=== PATIENT | male | born 1995 | race African-American/Black ===

== ENCOUNTER 2020-11-14 15:15 | Emergency (ER) | payer OTHER, SELFPAY ==
[2020-11-14 15:30] VITALS: BP 118/98; PULSE 87; RESP 16; TEMP 36.8; O2SAT 100
--- NOTE | 2020-11-14 15:36 | ED.SKABFB ---
HPI - Skin/Abscess/Foreign Bdy General Chief complaint: Skin/Abscess/Foreign Body Stated complaint: Lump on left side Time Seen by Provider: 11/14/20 15:33 Source: patient and RN notes reviewed Mode of arrival: ambulatory Limitations: no limitations History of Present Illness HPI narrative: 25-year-old male presents with concern for a lump that he noticed on his left chest wall yesterday. He reports he found it incidentally when rubbing on his chest, denies any pain in the area. Denies swelling, redness, warmth, tenderness. Denies any injury. Denies any drainage. complaint: abscess/boil Related Data Home Medications Medication Instructions Recorded Confirmed No Home Medications 11/14/20 11/14/20 Allergies Allergy/AdvReac Type Severity Reaction Status Date / Time No Known Allergies Allergy Verified 11/14/20 15:30 Review of Systems Review of Systems: Narrative: CONSTITUTIONAL: Denies malaise, chills, sweats, or fever. CARDIOVASCULAR: Denies chest pain, palpitations, or edema. RESPIRATORY: Denies cough or dyspnea. GASTROINTESTINAL: Denies abdominal pain, nausea, vomiting SKIN: Denies rash or itching. MUSCULOSKELETAL: Denies muscle skeletal pain or myalgia. Reports a lump on his left chest wall All systems reviewed & are unremarkable except as noted in HPI and below PMFSH Comments At time of signature, agree with nursing past medical, surgical, social and family history. There is no relevant family history pertinent to the presenting complaint Exam Narrative: Exam Narrative: GENERAL: Well-appearing, well-nourished, and in no acute distress. HEAD: Normocephalic, atraumatic. EYES: PERRLA, conjunctivae clear ENT: Mucous membranes moist. NECK: Supple. No lymphadenopathy. CHEST: No respiratory distress. Clear to auscultation. No bony deformities, no asymmetry. Speaks in full sentences. HEART: Regular rate and rhythm. No murmur heard. ABDOMEN: Soft, nontender, nondistended, normal active bowel sounds, no palpable masses. SKIN: Warm, dry, no rash. Palpable, mobile mass noted beneath the skin and above the ribs of the left chest wall approximately 3 cm x 1 cm, nontender without surrounding erythema, edema, induration. NEURO: Alert and oriented x3. PSYCH: Normal mood and affect Course Course Emergency Course: Patient is aware of diagnosis, understands and agrees to treatment plan. Anticipatory guidance given. Patient agrees to follow-up as directed and is aware of reasons to seek care at the emergency department. Portions of this record may have been created with voice recognition software Vital Signs Vital signs: Vital Signs Temperature 98.2 F 11/14/20 15:30 Pulse Rate 87 11/14/20 15:30 Respiratory Rate 16 11/14/20 15:30 Blood Pressure 118/98 H 11/14/20 15:30 Pulse Oximetry 100 11/14/20 15:30 Temperature 98.2 F 11/14/20 15:30 Pulse Rate 87 11/14/20 15:30 Respiratory Rate 16 11/14/20 15:30 Blood Pressure 118/98 H 11/14/20 15:30 Pulse Oximetry 100 11/14/20 15:30 Reviewed. MDM - Skin/Abscess/Foreign Bdy MDM Narrative Medical decision making narrative: Exam findings show no acute concerns or changes; patient is non-toxic appearing and is in no distress. Patient is appropriate for outpatient treatment and follow-up. Critical Care Time Critical Care Time Critical Care Time: No Discharge Plan Discharge Clinical Impression: Chest wall mass Patient Disposition: Home, Self-Care Condition: Stable Instructions: Cyst (ED) Additional Instructions: Keep your appointment with your primary care doctor next week for further evaluation. If you notice any redness, swelling, tenderness to the area you should return to urgent care or go to emergency room. Prescriptions: No Action No Home Medications RF: 0 Follow-up/Referrals: UNKNOWN,DOCTOR [Primary Care Provider] - Time of Disposition: 15:43
== END 2020-11-14 15:46 | disposition home or self-care (01) ==
PROVIDERS: Emergency Provider Nurse Practitioner
DX: R22.2 Localized swelling, mass and lump, trunk (principal)
CPT/HCPCS: 99202; G0463